=== PATIENT | male | born 1955 | race Caucasian/White ===

== ENCOUNTER → 2017-10-09 | Outpatient (CLI) | payer BC ==
[~2017-10-09] MED LIST: BISACODYL5 MG PO; MAG-AL PLUS SUS30 ML PO; NICOTINE PATCH1 EAC2 TD; OXYCODONE HCL5 MG PO; SENNA8.6 MG PO; TRIPLE ANTIB28.35 GM TP
== END | disposition home or self-care (01) ==
LOC: CDC 10:07
DX: Z01.810 Encounter for preprocedural cardiovascular examination (principal)
CPT/HCPCS: 93000